=== PATIENT | male | born 1965 | race Caucasian/White ===

== ENCOUNTER 2016-06-22 09:38 | Day surgery (SDC) | payer OTHER ==
[~2016-06-22] VITALS: Ht 170.2 cm; Wt 97.1 kg
[~2016-06-22 09:38] MED LIST: ADVIL200 M1 PO; ASPIRIN81 M1 PO; LIPITOR20 MG PO; TENORMIN25 MG PO
[2016-06-22] MEDS ORDERED: fentaNYL 0.05 MG/ML VIAL ONE (10:58)
[2016-06-22] MEDS ORDERED: LIDOCAINE 2% 100 MG/5 ML UJET TP ONE (10:59)
[2016-06-22] MEDS ORDERED: MIDAZOLAM 2 MG/2 ML VIAL ONE (10:59)
[2016-06-22] MEDS ORDERED: LIDOCAINE VISCOUS 2% 20 ML UDC ONE (10:59)
[2016-06-22] MEDS ORDERED: MIDAZOLAM 2 MG/2 ML VIAL IVP ONE (13:15)
[2016-06-22] MEDS ORDERED: fentaNYL 0.05 MG/ML VIAL IVP ONE (13:15)
== END 2016-06-22 12:40 | disposition home or self-care (01) ==
LOC: MDS 09:38 → MMU 09:38 → MDS 12:40
PROVIDERS: ATTEND Internal Medicine Gastroenterology
DX: K57.30 Diverticulosis of large intestine without perforation or abscess without bleeding (principal); K29.90 Gastroduodenitis, unspecified, without bleeding; K64.8 Other hemorrhoids; B96.81 Helicobacter pylori [H. pylori] as the cause of diseases classified elsewhere; K26.9 Duodenal ulcer, unspecified as acute or chronic, without hemorrhage or perforation
CPT/HCPCS: 36415; 43239; 45378; 86677; J2250; J3010

== ENCOUNTER 2016-12-30 06:44 | Day surgery (SDC) | payer OTHER ==
[~2016-12-30] VITALS: Ht 170.2 cm; Wt 97.5 kg
[~2016-12-30 06:44] MED LIST changes: -ADVIL200 M1 PO; -ASPIRIN81 M1 PO; +ATEN25TA7 PO; -LIPITOR20 MG PO; -TENORMIN25 MG PO
[2016-12-30 07:33] LABS: BASOPHILS # (AUTO) 0.3 K/uL (0.00-0.22); BASOPHILS % (AUTO) 3.4 % (0.0-2.0); EOSINOPHILS # (AUTO) 0.3 K/uL (0-0.4); EOSINOPHILS % (AUTO) 4.1 % (0.0-4.0); HEMOGLOBIN 14.4 g/dL (12.0-18.0); LYMPHOCYTES # (AUTO) 2.9 K/uL (2.0-11.5); LYMPHOCYTES % (AUTO) 39.3 % (20.5-51.1); MEAN CORPUSCULAR HEMOGLOBIN 30 pg (27-31); MEAN CORPUSCULAR HGB CONC 34 g/dL (33-37); MEAN CORPUSCULAR VOLUME 87 fL (80-94); MONOCYTES # (AUTO) 0.4 K/uL (0.8-1.0); MONOCYTES % (AUTO) 5.6 % (1.7-9.3); NEUTROPHILS # (AUTO) 3.5 K/uL (1.8-7.7); NEUTROPHILS % (AUTO) 47.6 % (42.2-75.2); PLATELET COUNT (AUTO) 151 K/uL (140-450); RED BLOOD CELL COUNT(AUTO) 4.82 MIL/uL (4.20-6.10); RED CELL DISTRIBUTION WIDTH 11.9 % (11.6-13.7); WHITE BLOOD COUNT (AUTO) 7.4 K/uL (4.8-10.8)
[2016-12-30] MEDS ORDERED: LIDOCAINE 2% 1000 MG/50 ML VIAL INJ ONE (07:49)
[2016-12-30 08:01] LABS: INR 1.1 (0.8-1.2); PARTIAL THROMBOPLASTIN TIME 30.4 secs (22-35.6)
[2016-12-30] MEDS: MORPHINE SULFATE 2 MG/ML SYR IVP PRN ×3 (08:27→09:29)
[2016-12-30] MEDS ORDERED: MORPHINE SULFATE 2 MG/ML SYR ONE (08:31)
== END 2016-12-30 10:01 | disposition home or self-care (01) ==
LOC: MDS 06:44 → MMU 06:44 → MDS 10:01
PROVIDERS: ATTEND Internal Medicine Gastroenterology
DX: K76.0 Fatty (change of) liver, not elsewhere classified (principal); E78.5 Hyperlipidemia, unspecified; I10 Essential (primary) hypertension; M19.90 Unspecified osteoarthritis, unspecified site
CPT/HCPCS: 36415; 47000; 76942; 85025; 85610; 85730; J2001; J2270; J7030; Q0092

== ENCOUNTER 2017-10-27 06:44 | Day surgery (SDC) | payer OTHER ==
[~2017-10-27] VITALS: Ht 170.2 cm; Wt 93.9 kg
[2017-10-27] MEDS ORDERED: LIDOCAINE 2% 100 MG/5 ML UJET TP ONE (07:21)
[2017-10-27] MEDS ORDERED: ATOR20TA PO (08:58)
[2017-10-27] MEDS ORDERED: GLU500 PO (08:58)
[2017-10-27] MEDS ORDERED: AMLO10TA PO (08:58)
== END 2017-10-27 09:38 | disposition home or self-care (01) ==
LOC: MDS 06:44 → MMU 06:45 → MDS 09:38
PROVIDERS: ATTEND Internal Medicine Gastroenterology
DX: D12.8 Benign neoplasm of rectum (principal); K64.8 Other hemorrhoids; K64.4 Residual hemorrhoidal skin tags; I10 Essential (primary) hypertension; E11.9 Type 2 diabetes mellitus without complications; E78.5 Hyperlipidemia, unspecified; Z68.32 Body mass index [BMI] 32.0-32.9, adult
CPT/HCPCS: 45338; 82948; J7120

== ENCOUNTER 2018-08-07 11:42 | Emergency (ER) | payer OTHER ==
[~2018-08-07] VITALS: Ht 170.2 cm; Wt 86.2 kg
[~2018-08-07 11:42] MED LIST changes: +AMLO10TA PO; +ATOR20TA PO; +GLU500 PO
[2018-08-07 11:48] VITALS: BP 146/84
--- NOTE | 2018-08-07 12:53 | NUR ---
PT RUFUSE VITAL SIGNS TO BE TAKEN, PT AMB BACK INTO THE LOBBY
--- NOTE | 2018-08-07 13:45 | NUR ---
PT AMBULATED TO ER BED 12
--- NOTE | 2018-08-07 13:50 | NUR ---
BIB SELF WITH C/O ABDOMINAL PAIN TO RUQ AND LUQ RADIATING TO RIGHT GROIN. PT STATES 7/10 STABBING PAIN. X 1 MONTH. LBM THIS MORNING. +N/V/D. REFERRED BY PCP. PATIENT POSITIONED FOR COMFORT; HOB ELEVATED; BEDRAILS UP X1; BED DOWN. ER MD MADE AWARE OF PT STATUS.
[2018-08-07 14:36] LABS: BASOPHILS % (AUTO) 0.6 % (0.0-2.0); EOSINOPHILS # (AUTO) 0.2 K/uL (0-0.4); EOSINOPHILS % (AUTO) 2.4 % (0.0-4.0); HEMATOCRIT 42.1 % (36-52); HEMOGLOBIN 14.6 g/dL (12.0-18.0); LYMPHOCYTES # (AUTO) 3.3 K/uL (2.0-11.5); LYMPHOCYTES % (AUTO) 38.1 % (20.5-51.1); MEAN CORPUSCULAR HEMOGLOBIN 30 pg (27-31); MEAN CORPUSCULAR HGB CONC 35 g/dL (33-37); MEAN CORPUSCULAR VOLUME 86.4 fL (80-94); MONOCYTES # (AUTO) 0.5 K/uL (0.8-1.0); MONOCYTES % (AUTO) 6.2 % (1.7-9.3); NEUTROPHILS # (AUTO) 4.6 K/uL (1.8-7.7); NEUTROPHILS % (AUTO) 52.7 % (42.2-75.2); PLATELET COUNT (AUTO) 169 K/uL (140-450); RED BLOOD CELL COUNT(AUTO) 4.87 MIL/uL (4.20-6.10); RED CELL DISTRIBUTION WIDTH 13.5 % (11.6-13.7); WHITE BLOOD COUNT (AUTO) 8.7 K/uL (4.8-10.8)
[2018-08-07] MEDS ORDERED: NACL 0.9% 1,000 ML IV ONE (14:36)
[2018-08-07] MEDS ORDERED: MORPHINE SULFATE 4 MG/ML SYR IVP ONE (14:40)
[2018-08-07] MEDS ORDERED: ONDANSETRON 4 MG/2 ML VIAL IVP ONE (14:40)
[2018-08-07] MEDS ORDERED: KETOROLAC 30 MG/ML VIAL IVP ONE (14:40)
[2018-08-07 14:43] LABS: CARBON DIOXIDE 29.5 mmol/L (21-32); CREATININE 0.7 mg/dL (0.7-1.3); POTASSIUM 3.5 mmol/L (3.5-5.1)
[2018-08-07 14:50] LABS: ALBUMIN 3.9 g/dL (3.4-5.0); TOTAL BILIRUBIN 0.5 mg/dL (0.0-1.0)
[2018-08-07] MEDS: NACL 0.9% 1,000 ML IV SCH ×3 (15:02→18:16)
[2018-08-07 15:08] LABS: APPEARANCE,URINE CLEAR (CLEAR); BILIRUBIN,URINE 1+ (NEGATIVE); BLOOD, URINE NEGATIVE (NEGATIVE); COLOR,URINE YELLOW (YELLOW); LEUKOCYTE ESTERASE ,URINE NEGATIVE (NEGATIVE); NITRITE, URINE NEGATIVE (NEGATIVE); PH,URINE 5.5 (5.0-9.0); UGLUCOSE NEGATIVE (NEGATIVE)
[2018-08-07 15:10] LABS: AMYLASE 112 U/L (25-115); LIPASE 232 U/L (73-393)
[2018-08-07 16:23] LABS: PROTHROMBIN TIME 10.5 secs (10.8-13.4)
--- NOTE | 2018-08-07 16:59 | NUR ---
PATIENT TAKEN TO CT WITH MIRYAM VIA [facility].
--- NOTE | 2018-08-07 17:12 | NUR ---
PATIENT RETURN FROM CT.
[2018-08-07 18:13] VITALS: BP 142/82
--- NOTE | 2018-08-07 18:13 | NUR ---
Patient discharged with v/s stable. Written and verbal after care instructions given and explained. Patient alert, oriented and verbalized understanding of instructions. Ambulatory with steady gait. All questions addressed prior to discharge. ID band removed. Patient advised to follow up with PMD. Rx of Cipro, Flagyl, Tramadol Hydrochloride given. Patient educated on indication of medication including possible reaction and side effects. Opportunity to ask questions provided and answered.
== END 2018-08-07 18:13 | disposition home or self-care (01) ==
LOC: MED 11:42
DX: K57.32 Diverticulitis of large intestine without perforation or abscess without bleeding (principal); Z79.84 Long term (current) use of oral hypoglycemic drugs; Z79.899 Other long term (current) drug therapy
CPT/HCPCS: 36415; 74177; 76705; 80053; 81003; 82150; 83690; 83735; 85025; 85610; 99284; J7030; Q0092; Q9967

== ENCOUNTER 2023-07-13 18:07 | Emergency (ER) | payer OTHER ==
[~2023-07-13] VITALS: Ht 170.2 cm; Wt 78.9 kg
[2023-07-13 18:25] VITALS: BP 147/83; PULSE 93; RESP 18; TEMP 98.3; O2SAT 97
[2023-07-13 19:30] LABS: ANION GAP 10.6 (8-16); CALCIUM 8.4 mg/dL (8.5-10.1); CARBON DIOXIDE 28.7 mmol/L (21-32); POTASSIUM 3.3 mmol/L (3.5-5.1)
[2023-07-13 19:31] LABS: BASOPHILS # (AUTO) 0.1 K/uL (0.00-0.22); BASOPHILS % (AUTO) 0.8 % (0.0-2.0); EOSINOPHILS # (AUTO) 0.5 K/uL (0-0.4); EOSINOPHILS % (AUTO) 4.6 % (0.0-4.0); HEMATOCRIT 41.3 % (36-52); HEMOGLOBIN 14.6 g/dL (12.0-18.0); LYMPHOCYTES # (AUTO) 3.2 K/uL (2.0-11.5); LYMPHOCYTES % (AUTO) 27.6 % (20.5-51.1); MEAN CORPUSCULAR HEMOGLOBIN 32 pg (27-31); MEAN CORPUSCULAR HGB CONC 35 g/dL (33-37); MEAN CORPUSCULAR VOLUME 89.4 fL (80-94); MONOCYTES % (AUTO) 8.2 % (1.7-9.3); NEUTROPHILS # (AUTO) 6.8 K/uL (1.8-7.7); NEUTROPHILS % (AUTO) 58.8 % (42.2-75.2); PLATELET COUNT (AUTO) 146 K/uL (140-450); RED BLOOD CELL COUNT(AUTO) 4.62 MIL/uL (4.20-6.10); RED CELL DISTRIBUTION WIDTH 12.9 % (11.6-13.7); WHITE BLOOD COUNT (AUTO) 11.6 K/uL (4.8-10.8)
[2023-07-13 19:40] LABS: ALANINE AMINOTRANSFERASE 25 U/L (12-78); ALBUMIN 3.6 g/dL (3.4-5.0); ALKALINE PHOSPHATASE 94 U/L (50-136); ASPARTATE AMINOTRANSFERASE 22 U/L (15-37); BILIRUBIN,DIRECT 0.1 mg/dL (0.0-0.3); TOTAL BILIRUBIN 0.7 mg/dL (0.0-1.0); TOTAL PROTEIN, SERUM 8.6 g/dL (6.4-8.2)
[2023-07-13 19:48] VITALS: TEMP 98.2
[2023-07-13 19:53] VITALS: O2SAT 98
[2023-07-13] MEDS: KETOROLAC 30 MG/ML VIAL IVP ONE (20:27)
[2023-07-13 21:48] VITALS: BP 144/79; PULSE 68; RESP 16; O2SAT 97
== END 2023-07-13 22:58 | disposition home or self-care (01) ==
LOC: MED 18:07
DX: R07.9 Chest pain, unspecified (principal); R10.33 Periumbilical pain; R10.2 Pelvic and perineal pain; R22.32 Localized swelling, mass and lump, left upper limb; Z71.6 Tobacco abuse counseling; I10 Essential (primary) hypertension; F17.210 Nicotine dependence, cigarettes, uncomplicated; Z79.899 Other long term (current) drug therapy; Z90.49 Acquired absence of other specified parts of digestive tract; Z98.890 Other specified postprocedural states
CPT/HCPCS: 36415; 71045; 71275; 74174; 80048; 80076; 83880; 84484; 85025; 93005; 99291; J1885; Q9967

== ENCOUNTER 2023-10-26 17:43 | Emergency (ER) | payer OTHER ==
[~2023-10-26] VITALS: Ht 170.2 cm; Wt 81.6 kg
[2023-10-26 17:49] VITALS: BP 122/91; PULSE 96; RESP 20; TEMP 98.3; O2SAT 98
[2023-10-26] MEDS ORDERED: CEPH-588 PO (18:16)
[2023-10-26] MEDS ORDERED: NAPR-1704 PO (18:16)
[2023-10-26] MEDS ORDERED: cefTRIAXone 500 MG VIAL ONE (18:44)
[2023-10-26] MEDS ORDERED: LIDOCAINE MPF 1% 5 ML ONE (18:45)
[2023-10-26] MEDS: cefTRIAXone 500 MG in LIDOCAINE MPF 1% 1 ML IM ONE (18:55)
[2023-10-26] MEDS: KETOROLAC 30 MG/ML VIAL IM ONE (18:56)
== END 2023-10-26 19:00 | disposition home or self-care (01) ==
LOC: MED 17:43
DX: L02.215 Cutaneous abscess of perineum (principal); Z79.899 Other long term (current) drug therapy
CPT/HCPCS: 96372; 99284; J0696; J1885; J2001